=== PATIENT | female | born 1985 | race Caucasian/White ===

== ENCOUNTER 2016-10-30 13:23 | Day surgery (SDC) | payer BC ==
[~2016-10-30] VITALS: Ht 167.6 cm; Wt 60.0 kg
[~2016-10-30 13:23] MED LIST: ENDOCET 5-3251 EACH PO; IBUPROFEN800 MG PO; Motrin PO; PRENATAL TABLE1 EAC3 PO; Percocet 5/325,Endoc PO
[2016-10-30 14:11] VITALS: BP 115/64
[2016-10-30 14:14] LABS: EOSINOPHIL (%) 2.5 % (0-5); EOSINOPHIL COUNT 0.2 K/uL (0-0.3); HEMATOCRIT 30.6 % (36.0-46.0); IMMATURE GRANULOCYTE (%) 0.1 % (0.0-0.7); LYMPHOCYTE COUNT 3.4 K/uL (1.0-2.8); MCH 28.4 PG (29.0-34.0); MCHC 32.7 G/DL (30.0-36.0); MCV 86.9 FL (83-99); MEAN PLAT.VOLUME 9.8 uM^3 (9.5-12.4); MONOCYTE (%) 4.9 % (3-12); MONOCYTE COUNT 0.4 K/uL (0-0.8); NEUTROPHIL (%) 51.5 % (45-76); NEUTROPHIL COUNT 4.3 K/uL (1.8-6.4); PLATELET COUNT 226 K/uL (156-360); RBC DIS.WIDTH-CV 12.4 % (11.8-14.6); RBC DIS.WIDTH-SD 39.8 % (39-53); RED BLOOD COUNT 3.52 M/uL (3.80-5.20); WHITE BLOOD COUNT 8.3 K/uL (4.1-10.2)
[2016-10-30] MEDS ORDERED: IRON325 M1 PO (14:19)
[2016-10-30] MEDS ORDERED: DOXYCYCLINE HY100 M3 PO (18:26)
[2016-10-30] MEDS ORDERED: IBUPROFEN800 MG PO (18:26)
[2016-10-30] MEDS ORDERED: Methergine PO (18:36)
[2016-10-30 19:29] VITALS: BP 101/55
[2016-10-30 20:02] VITALS: BP 95/51
== END 2016-10-30 20:06 | disposition home or self-care (01) ==
LOC: SDC 13:23
PROVIDERS: Obstetrics & Gynecology
PROC: 10D17ZZ Extraction of Products of Conception, Retained, Via Natural or Artificial Opening (ICD-10-PCS; principal; 2016-10-30)
DX: O03.4 Incomplete spontaneous abortion without complication (principal)
CPT/HCPCS: 85025; 86850; 86900; 86901; 88305; J1100; J1885; J2175; J2250; J2405; J3010